=== PATIENT | female | born 1995 | race Caucasian/White ===

== ENCOUNTER 2018-11-08 16:42 | Emergency (ER) | payer OTHER ==
[~2018-11-08] VITALS: Ht 154.9 cm; Wt 63.0 kg
[2018-11-08 16:48] VITALS: Ht 154.9 cm; Wt 63.0 kg
[2018-11-08 18:18] VITALS: BP 102/66
== END 2018-11-08 18:18 | disposition home or self-care (01) ==
LOC: ED 16:42
DX: L30.8 Other specified dermatitis (principal)

== ENCOUNTER 2019-10-29 18:19 | Emergency (ER) | payer OTHER ==
[~2019-10-29] VITALS: Ht 157.5 cm; Wt 65.8 kg
[2019-10-29 18:30] VITALS: Ht 157.5 cm; Wt 65.8 kg
[2019-10-29 19:17] LABS: CALCIUM 8.4 mg/dL (8.5-10.1); CARBON DIOXIDE 24.6 mmol/L (21-32); CHLORIDE SERUM 101 mmol/L (98-107); CREATININE SERUM 0.8 mg/dL (0.6-1.0); GFR1 > 60 mL/min; GLUCOSE SERUM 119 mg/dL (74-106); POTASSIUM SERUM 3.5 mmol/L (3.5-5.1); SODIUM SERUM 136 mmol/L (136-145)
[2019-10-29 19:22] LABS: ALBUMIN 3.6 g/dL (3.4-5.0); ALKALINE PHOSPHATASE 59 U/L (46-116); ALT/SGPT 23 U/L (14-59); AST/SGOT 12 U/L (15-37); BILIRUBIN TOTAL 0.2 mg/dL (0.20-1.00); LIPASE 81 IU/L (73-393); TOTAL PROTEIN, SERUM 7.5 g/dL (6.4-8.2)
[2019-10-29 19:23] LABS: BASOPHIL % 0.2 % (0-2); PLATELET COUNT 170 x10^3mcL (130-400); RED CELL DISTRIBUTION WIDTH 13.1 % (11.5-14.5)
[2019-10-29 19:53] LABS: UA SPECIFIC GRAVITY 1.025 (1.005-1.035); microscopic required? YES; urine erythrocyte 3+ (NEGATIVE)
[2019-10-29 21:11] VITALS: BP 91/50
== END 2019-10-29 21:13 | disposition home or self-care (01) ==
LOC: ED 18:19
PROVIDERS: Emergency Medicine
DX: N10 Acute pyelonephritis (principal); R11.10 Vomiting, unspecified; R50.9 Fever, unspecified
CPT/HCPCS: J0696; J2405; J7030; J7060